=== PATIENT | male | born 1980 | race Caucasian/White ===

== ENCOUNTER 2023-11-09 06:49 | Emergency (ER) | payer BC ==
[2023-11-09] MEDS: Naproxen 500 MG Tab PO ONE (07:36)
== END 2023-11-09 09:05 | disposition home or self-care (01) ==
LOC: JD.ED 06:49
DX: S22.42XA Multiple fractures of ribs, left side, initial encounter for closed fracture (principal); F17.210 Nicotine dependence, cigarettes, uncomplicated; Z79.899 Other long term (current) drug therapy; W19.XXXA Unspecified fall, initial encounter
CPT/HCPCS: 71100; 99283; A9270